=== PATIENT | male | born 1975 | race Caucasian/White ===

== ENCOUNTER 2019-05-30 16:04 | Emergency (ER) | payer BC, OTHER ==
--- NOTE | 2019-05-30 17:24 | UC ---
Hand/Wrist HPI - HPI Summary HPI Summary: ABOUT 1:15AM TODAY PT TRIPPED AND FELL LANDING ON LEFT HAND. HAS PAIN AND SWELLING AT BASE OF LEFT THUMB. - History Of Current Complaint Chief Complaint: UCUpperExtremity Stated Complaint: LEFT THUMB INJURY Time Seen by Provider: 05/30/19 17:00 Hx Obtained From: Patient Onset/Duration: Sudden Onset, Lasting Hours, Still Present Severity Initially: Moderate Severity Currently: Moderate Pain Intensity: 9 Pain Scale Used: 0-10 Numeric Character Of Pain: Sharp Aggravating Factor(s): Movement Alleviating Factor(s): Rest, Ice Associated Signs And Symptoms: Positive: Swelling, Bruising Related History: Dominant Hand Right - Allergies/Home Medications Allergies/Adverse Reactions: Allergies Allergy/AdvReac Type Severity Reaction Status Date / Time No Known Allergies Allergy Verified 05/30/19 16:22 Home Medications: Home Medications NK [No Home Medications Reported] 05/30/19 [History Confirmed 05/30/19] PMH/Surg Hx/FS Hx/Imm Hx Cardiovascular History: Hypertension - Surgical History Surgical History: None - Family History Known Family History: Positive: Unknown - PT STATES "WE DON'T TALK ABOUT IT" - Social History Alcohol Use: Weekly Substance Use Type: None Smoking Status (MU): Never Smoked Tobacco Review of Systems All Other Systems Reviewed And Are Negative: Yes Constitutional: Positive: Negative Skin: Positive: Bruising Respiratory: Positive: Negative Cardiovascular: Positive: Negative Gastrointestinal: Positive: Negative Musculoskeletal: Positive: Arthralgia, Decreased ROM, Edema Neurological: Positive: Negative Physical Exam Triage Information Reviewed: Yes Appearance: Well-Appearing, No Pain Distress, Well-Nourished Vital Signs: Initial Vital Signs Temp 97.8 F 05/30/19 16:17 Pulse 90 05/30/19 16:17 Resp 20 05/30/19 16:17 BP 214/138 05/30/19 16:17 Pulse Ox 97 05/30/19 16:17 Laboratory Tests 05/30/19 17:52 POC Urine Color Yellow POC Urine Clarity Clear POC Urine pH 6.0 POC Ur Specif [place] 1.015 POC Urine Protein 1+ A POC Ur Glucose (UA) 2+ A POC Urine Ketones Negative POC Urine Blood Trace-intact A POC Urine Nitrite Negative POC Urine Bilirubin Negative POC Urine Urobilinogen 0.2 POC U Leukocyte Esteras Negative Vital Signs Reviewed: Yes Eyes: Positive: Conjunctiva Clear ENT: Positive: Hearing grossly normal Neck: Positive: Supple Respiratory: Positive: No respiratory distress, No accessory muscle use Cardiovascular: Positive: Pulses Normal Abdomen Description: Positive: Soft Musculoskeletal: Positive: ROM Limited @ - LEFT THUMB, Edema @ - BASE OF LEFT THUMB, Other: - TTP BASE OF LEFT THUMB AND IN 1ST INTERDIGITAL [employer] Neurological: Positive: Alert Psychological: Positive: Age Appropriate Behavior Skin: Positive: Other - BRUISING BASE OF LEFT THUMB. Negative: Rashes Diagnostics - Radiology LEFT THUMB XRAYS Radiology Interpretation Completed By: Radiologist Summary of Radiographic Findings: FRACTURE OF THE BASE OF THE FIRST METACARPAL Hand/Wrist Course/Dx - Course Course Of Treatment: FRACTURE OF THE BASE OF THE FIRST METACARPAL OF THE LEFT HAND ON X-RAY TODAY. PATIENT PLACED IN A THUMB SPICA SPLINT AND ADVISED TO CALL ORTHOPEDICS FIRST THING IN THE MORNING FOR FOLLOW-UP APPOINTMENT THIS WEEK. TYLENOL NEEDED FOR DISCOMFORT. PATIENT DECLINES PRESCRIPTION PAIN MEDICATIONS TODAY. GIVEN HIS SIGNIFICANTLY ELEVATED BLOOD PRESSURE I ADVISED AGAINST TAKING NSAIDS SUCH IBUPROFEN OR NAPROXEN FOR NOW. ON TRIAGE BLOOD PRESSURE FOUND TO BE 214/ 138. MANUAL REPEAT BP SIMILAR. UPON FURTHER QUESTIONING IT IS DISCOVERED THE PATIENT HAS A KNOWN DIAGNOSIS OF HIGH BLOOD PRESSURE BUT HAS NOT HAD MEDICATIONS OR PRIMARY CARE FOLLOW-UP IN OVER 4 YEARS. HE DENIES CHEST PAIN, NAUSEA, SHORTNESS OF BREATH, HEADACHE, VISUAL DISTURBANCES. IS UNSURE OF HIS FAMILY HISTORY STATING THAT THEY "JUST DON'T TALK ABOUT IT "ALTHOUGH HE THINKS HIS FATHER HAD A HEART VALVE PROBLEM. URINALYSIS OBTAINED AND FOUND TO HAVE 2+ GLUCOSE AND 1+ PROTEIN. CONCERN FOR UNDERLYING DIABETES AND POSSIBLE KIDNEY INJURY FROM LONG-STANDING UNCONTROLLED HYPERTENSION. RECOMMEND TRANSFER TO THE EMERGENCY ROOM FOR FURTHER EVALUATION. PATIENT DECLINES TRANSFER BY AMBULANCE. ADVISED THAT BY NOT TRAVELING IN A MONITORED SETTING HE COULD BE RISKING WORSENING OF HIS CONDITION THAT COULD POSE A THREAT TO HIS LIFE, HEALTH AND MEDICAL SAFETY. HE VERBALIZES UNDERSTANDING AND CONTINUES TO DECLINE AMBULANCE TRANSFER. - Differential Dx/Diagnosis Provider Diagnosis: Fracture of first metacarpal of left hand, Hypertensive emergency - Physician Notifications Discussed Patient Care With: Kai Arias - [place] [facility] [place] PR[facility] CAR Time Discussed With Above Provider: 18:20 Instructed by Provider To: MD Will See In ED Discharge - Sign-Out/Discharge Documenting (check all that apply): Patient Departure All imaging exams completed and their final reports reviewed: Yes - Discharge Plan Condition: Stable Disposition: TRANS HIGHER LVL OF CARE FAC Patient Education Materials: Thumb Fracture (ED), Hypertensive Crisis (ED) Referrals: [facility] [Outside] - 2 Days Preston Rodas MD [Medical Doctor] - 2 Days Additional Instructions: X-RAY SHOWS A FRACTURE OF ONE OF THE BONES OF YOUR LEFT THUMB. KEEP THE THUMB SPICA SPLINT ON UNTIL SEEN BY ORTHOPEDICS. CALL ORTHO FIRST THING TOMORROW MORNING TO SCHEDULE A FOLLOW-UP APPOINTMENT FOR THIS WEEK. TYLENOL NEEDED FOR DISCOMFORT. GIVEN YOUR ELEVATED BLOOD PRESSURE I RECOMMEND YOU AVOID NSAIDS INCLUDING IBUPROFEN AND NAPROXEN FOR NOW. GO DIRECTLY TO THE [facility] FROM [place] FOR FURTHER EVALUATION OF YOUR BLOOD PRESSURE. YOU HAVE GLUCOSE AND PROTEIN IN YOUR URINE. I'M CONCERNED YOU MAY HAVE UNDERLYING DIABETES AND POSSIBLY KIDNEY INJURY FROM LONG-STANDING UNCONTROLLED HIGH BLOOD PRESSURE. YOU HAVE DECLINED TRANSFER TO THE ER BY AMBULANCE. BE ADVISED THAT BY NOT TRAVELING IN A MONITORED SETTING YOU COULD BE RISKING WORSENING OF YOUR CONDITION THAT COULD POSE A THREAT TO YOUR LIFE, HEALTH AND MEDICAL SAFETY. - Billing Disposition and Condition Condition: STABLE Disposition: Trans Higher Lvl of Care Fac
[2019-05-30 17:37] VITALS: BP 212/140
== END 2019-05-30 18:30 | disposition short-term general hospital (02) ==
LOC: UCEAST 16:04
DX: S62.232A Other displaced fracture of base of first metacarpal bone, left hand, initial encounter for closed fracture (principal); W01.0XXA Fall on same level from slipping, tripping and stumbling without subsequent striking against object, initial encounter; Y92.9 Unspecified place or not applicable; I16.0 Hypertensive urgency
CPT/HCPCS: 81003; 99203; G0463

== ENCOUNTER 2019-05-30 18:52 | Emergency (ER) | payer BC ==
[2019-05-30] MEDS ORDERED: Labetalol IV* 5 MG/ML 20 ML VIAL IV PUSH ONE ×3 (19:24→21:05)
--- NOTE | 2019-05-30 19:40 | ED ---
Hypertension - HPI Summary HPI Summary: The patient is a 43 y/o M presenting to [facility] from Urgent Care with a chief complaint of hypertension today. He reports he went to Urgent Care to rule out a fracture in his left hand, but he was sent here because of the increase in blood pressure that he presented with. He is not currently in any pain. He denies CP, SOB, blurred vision, and headache. He notes that he has hx of HTN and used to take Lisinopril, but he stopped taking the medication five years ago. No other past medical hx. Nonsmoker, weekly EtOH, no substance use. - History of Current Complaint Chief Complaint: EDHypertension Stated Complaint: "ELEVATED BLOOD PRESSURE PER PT COMING FROM [facility]" Time Seen by Provider: 05/30/19 19:15 Hx Obtained From: Patient Onset/Duration: Started Minutes Ago, Still Present Timing: Lasting Minutes Aggravating Factor(s): Nothing Alleviating Factor(s): Nothing Associated Signs & Symptoms: Other: - NEGATIVE: CP, SOB, blurred vision, headache - Allergies/Home Medications Allergies/Adverse Reactions: Allergies Allergy/AdvReac Type Severity Reaction Status Date / Time No Known Allergies Allergy Verified 05/30/19 18:58 PMH/Surg Hx/FS Hx/Imm Hx Endocrine/Hematology History: Denies: Hx Diabetes, Hx Thyroid Disease Cardiovascular History: Reports: Hx Hypertension Denies: Hx Hypercholesterolemia Respiratory History: Denies: Hx Asthma, Hx Chronic Obstructive Pulmonary Disease (COPD) GI History: Denies: Hx Ulcer - Surgical History Surgical History: None Surgery Procedure, Year, and Place: none Infectious Disease History: No Infectious Disease History: Denies: Hx Hepatitis, Hx Human Immunodeficiency Virus (HIV), Traveled Outside the [place] in Last 30 Days - Family History Known Family History: Positive: Unknown - patient is unsure of fhx - Social History Alcohol Use: Weekly Hx Substance Use: No Substance Use Type: Reports: None Hx Tobacco Use: No Smoking Status (MU): Never Smoked Tobacco Review of Systems Negative: Blurred Vision Positive: Other - increased BP. Negative: Chest Pain Negative: Shortness Of Breath Negative: Headache All Other Systems Reviewed And Are Negative: Yes Physical Exam - Summary Physical Exam Summary: VITAL SIGNS: Reviewed. Hypertensive. GENERAL: Patient is a well-developed but obese male who is lying comfortable in the stretcher. Patient is not in any acute respiratory distress. HEAD AND FACE: No signs of trauma. No ecchymosis, hematomas or skull depressions. No sinus tenderness. EYES: PERRLA, EOMI x 2, No injected conjunctiva, no nystagmus. EARS: Hearing grossly intact. Ear canals and tympanic membranes are within normal limits. MOUTH: Oropharynx within normal limits. NECK: Supple, trachea is midline, no adenopathy, no JVD, no carotid bruit, no c- spine tenderness, neck with full ROM. CHEST: Symmetric, no tenderness at palpation. LUNGS: Clear to auscultation bilaterally. No wheezing or crackles. CVS: Regular rate and rhythm, S1 and S2 present, no murmurs or gallops appreciated. ABDOMEN: Soft, non-tender. No signs of distention. No rebound, no guarding, and no masses palpated. Bowel sounds are normal. EXTREMITIES: FROM in all major joints, no edema, no cyanosis or clubbing. NEURO: Alert and oriented x 3. No acute neurological deficits. Speech is normal and follows commands. SKIN: Dry and warm. Triage Information Reviewed: Yes Vital Signs On Initial Exam: Initial Vitals Temp Pulse Resp BP Pulse Ox 98.3 F 85 18 205/142 97 05/30/19 18:53 05/30/19 18:53 05/30/19 18:53 05/30/19 18:53 05/30/19 18:53 Vital Signs Reviewed: Yes Diagnostics - Vital Signs Vital Signs Temp Pulse Resp BP Pulse Ox 05/30/19 18:53 98.3 F 85 18 205/142 97 - Laboratory Result Diagrams: 05/30/19 19:57 05/30/19 19:57 Lab Statement: Any lab studies that have been ordered have been reviewed, and results considered in the medical decision making process. - EKG 1924 Cardiac Rate: NL - 94 BPM EKG Rhythm: Sinus Rhythm Summary of EKG Findings: LVH. No ST elevations. Re-Evaluation - Re-Evaluation First Eval Re-Evaluation Time: 20:33 Change: Improved Comment: The patient is feeling better as blood pressure has improved with medication. Second Eval Re-Evaluation Time: 21:52 Change: Improved Comment: The patient continues to improve. We discussed discharge. Hypertension Course/Dx - Course Assessment/Plan: The patient is a 43 y/o M presenting to [facility] from Urgent Care with a chief complaint of hypertension today. He reports he went to Urgent Care to rule out a fracture in his left hand, but he was sent here because of the increase in blood pressure that he presented with. He is not currently in any pain. He denies CP, SOB, blurred vision, and headache. He notes that he has hx of HTN and used to take Lisinopril, but he stopped taking the medication five years ago. No other past medical hx. Nonsmoker, weekly EtOH, no substance use. Blood work without any significant abnormality except for sodium of 133, chloride of 98, and glucose of 220. The patient continues to be asymptomatic except for hypertension. The patient was given labetalol 20 mg IV 2, and the blood pressure has improved. The blood pressure manually is 161/96. Therefore, the patient was discharged home with follow-up with primary care physician. Patient will be given a prescription for Hyzaar/hydrochlorothiazide. I discussed all the findings and test results with the patient. Patient was instructed to return to the emergency room immediately if any of the symptoms return worsens. Plan of care was discussed with the patient and understands and agrees. All questions were answered at patient satisfaction. There were no further complaints or concerns. Lung exam before discharge: CTA B/L. Good air exchange. No wheezing or crackles heard. CVS: S1 and S2 present. No murmurs appreciated. Patient is alert and oriented x 3. Patient is hemodynamically stable. Patient will be discharged home with follow up PCP in the next 2-3 days. - Diagnoses Provider Diagnoses: Uncontrolled hypertension Discharge - Sign-Out/Discharge Documenting (check all that apply): Patient Departure - Patient will be discharged home. Patient Received Moderate/Deep Sedation with Procedure: No - Discharge Plan Condition: Stable Disposition: HOME Prescriptions: Losartan/Hydrochlorothiazide [Hyzaar 100/12.5 mg] 1 tab PO DAILY #30 tab Patient Education Materials: Chronic Hypertension (DC) Referrals: [facility] [Outside] - 3 Days Additional Instructions: Please take medication as prescribed. Follow up with your primary care provider in 2-3 days. RETURN TO THE EMERGENCY DEPARTMENT FOR ANY NEW OR WORSENING SYMPTOMS. - Billing Disposition and Condition Condition: STABLE Disposition: Home - Attestation Statements Document Initiated by Scribe: Yes Documenting Scribe: Mariposa Morales Provider For Whom Ryliee is Documenting (Include Credential): Dr. Marshall Trotter MD Scribe Attestation: I, Mariposa Morales, scribed for Dr. Marshall Trotter MD on 05/30/19 at 2155. Scribe Documentation Reviewed: Yes Provider Attestation: The documentation as recorded by the scribe, Mariposa Morales accurately reflects the service I personally performed and the decisions made by me, Dr. Marshall Trotter MD Status of Scribe Document: Ready
[2019-05-30 20:03] LABS: ABS Basophils 0.1 10^3/ul (0-0.2); ABS Eosinophils 0.1 10^3/ul (0-0.6); ABS Lymphocytes 2.4 10^3/ul (1.0-4.8); ABS Monocytes 0.7 10^3/ul (0-0.8); ABS Neutrophils 5.1 10^3/ul (1.5-7.7); Eosinophil % 0.9 %; Hematocrit 46 % (42-52); Hemoglobin 16.1 g/dL (14.0-18.0); Lymphocyte % 28.4 %; Mean Corpuscular HGB Conc 35 g/dL (31-36); Mean Corpuscular Hemoglobin 32 pg (27-31); Mean Corpuscular Volume 92 fL (80-94); Mean Platelet Volume 7.5 fL (7.4-10.4); Nucleated Red Blood Cells % 0.1; Platelet Count 235 10^3/uL (150-450); Red Blood Count 4.99 10^6 /uL (4.18-5.48); Red Cell Distribution Width 13 % (10-15); White Blood Count 8.5 10^3/uL (3.5-10.8)
[2019-05-30 20:20] LABS: BUN/Creatinine Ratio 11.6 (8-20); Calcium 8.7 mg/dL (8.6-10.3); EGFR Non-African American 97.5 (>60); Potassium 3.8 mmol/L (3.5-5.0)
[2019-05-30 22:02] VITALS: BP 145/97
== END 2019-05-30 22:00 | disposition home or self-care (01) ==
LOC: ED 18:52
DX: I10 Essential (primary) hypertension (principal); S62.232A Other displaced fracture of base of first metacarpal bone, left hand, initial encounter for closed fracture; W01.0XXA Fall on same level from slipping, tripping and stumbling without subsequent striking against object, initial encounter; Y92.9 Unspecified place or not applicable; I16.0 Hypertensive urgency
CPT/HCPCS: 36415; 80048; 85025; 93005; 96374; 96376; 99283

== ENCOUNTER 2023-10-10 15:42 | Observation (INO) ==
[2023-10-10 17:57] LABS: ABS Basophils 0.1 10^3/uL (0.0-0.1); ABS Eosinophils 0.1 10^3/uL (0.0-0.5); ABS Lymphocytes 1.9 10^3/uL (1.0-4.8); ABS Monocytes 0.5 10^3/uL (0.0-1.1); ABS Neutrophils 6.8 10^3/uL (1.5-7.6); ABS Nucleated RBC 0.01 10^3/ul; Eosinophil % 0.9 %; Hematocrit 47.6 % (38-53); Hemoglobin 16.2 g/dL (13.2-16.3); Lymphocyte % 20.4 %; Mean Corpuscular Hemoglobin 33.1 pg (27-33); Mean Corpuscular Hgb Conc 34.1 g/dL (31-36); Mean Corpuscular Volume 97.1 fL (80-97); Mean Platelet Volume 8.1 fL (7.5-11.2); Nucleated Red Blood Cells % 0.1 %/100WBC (0.0-0.8); Platelet Count 354 10^3/uL (150-450); Red Cell Distribution Width 13.7 % (12-17); White Blood Count 9.3 10^3/uL (3.6-10.2)
[2023-10-10 18:11] LABS: Albumin 3.5 g/dL (3.2-5.2); Albumin/Globulin Ratio 1.1 (1-3); C Reactive Protein 18.87 mg/L (<8.01); Creatinine, Serum 1.22 mg/dL (0.67-1.17); Globulin 3.2 g/dL (2-4); Total Bilirubin 1.4 mg/dL (0.2-1.0); Total Protein 6.7 g/dL (6.4-8.9)
[2023-10-10] MEDS ORDERED: Vancomycin 1,500 MG in NS 0.9% 250 ml 250 ML IVPB ONE (22:10)
[2023-10-11] MEDS ORDERED: Labetalol IV 5 MG/ML 20 ml VIAL IV PUSH PRN (02:52)
[2023-10-11] MEDS ORDERED: Vancomycin per Pharmacy 1 EA NOTE FOLLOW UP SCH (03:00)
[2023-10-11] MEDS ORDERED: Cefepime 2 GM in Dextrose 2 GM/50 ML BAG IV SCH (04:00)
[2023-10-11] MEDS: Enoxaparin 40 MG/0.4 ML SYR SUBCUT SCH (05:21)
[2023-10-11 08:06] LABS: Hemoglobin 14.3 g/dL (13.2-16.3); Mean Corpuscular Hemoglobin 33.1 pg (27-33); Mean Corpuscular Volume 97.3 fL (80-97); Mean Platelet Volume 8.5 fL (7.5-11.2); Platelet Count 332 10^3/uL (150-450); Red Blood Count 4.32 10^6/uL (4.06-5.63); Red Cell Distribution Width 13.2 % (12-17); White Blood Count 8.7 10^3/uL (3.6-10.2)
[2023-10-11] MEDS ORDERED: Dextrose 50% Syringe 50 ml 25 GM/50 ML SYRINGE IV PUSH PRN (08:38)
[2023-10-11 09:14] LABS: Calcium 8.5 mg/dL (8.6-10.3); Creatinine, Serum 1.18 mg/dL (0.67-1.17); Direct Bilirubin 0.4 mg/dL (0.03-0.18); Globulin 2.9 g/dL (2-4); Indirect Bilirubin 1.1 mg/dL (0.3-1.0); Potassium 3.7 mmol/L (3.5-5.0); Total Bilirubin 1.5 mg/dL (0.2-1.0); Total Protein 5.9 g/dL (6.4-8.9); eGFR CKD-EPI 77.1 (>60)
[2023-10-11] MEDS ORDERED: Furosemide 40 mg/4 ml IV VIAL IV ONE (09:14)
[2023-10-11 10:52] LABS: Urine Osmo 257 mOsm/kg (150-1150)
[2023-10-11] MEDS ORDERED: Vancomycin 1,250 MG in NS 0.9% 250 ml 250 ML IVPB SCH (11:00)
[2023-10-11 14:11] LABS: HDL Cholesterol 23.6 mg/dL
[2023-10-11 15:26] LABS: TSH Ultra Thyroid Stim Horm 3.68 mcIU/mL (0.34-5.60)
[2023-10-11] MEDS ORDERED: Potassium Chloride LIQUID 20 MEQ/15 ML LIQUID PO ONE (15:55)
[2023-10-11] MEDS: cefTRIAXone 2 gm/50 mL D5W 2 GM/50 ML BAG IV SCH (17:37)
[2023-10-11 21:52] LABS: Magnesium 1.4 mg/dL (1.9-2.7)
[2023-10-12] MEDS: Enoxaparin 40 MG/0.4 ML SYR SUBCUT SCH (05:57)
[2023-10-12 06:37] LABS: ABS Basophils 0.1 10^3/uL (0.0-0.1); ABS Eosinophils 0.2 10^3/uL (0.0-0.5); ABS Lymphocytes 2.2 10^3/uL (1.0-4.8); ABS Monocytes 0.6 10^3/uL (0.0-1.1); ABS Neutrophils 3.2 10^3/uL (1.5-7.6); ABS Nucleated RBC 0.01 10^3/ul; Eosinophil % 3.4 %; Hematocrit 43.1 % (38-53); Hemoglobin 14.8 g/dL (13.2-16.3); Lymphocyte % 35.2 %; Mean Corpuscular Hemoglobin 33.2 pg (27-33); Mean Corpuscular Hgb Conc 34.2 g/dL (31-36); Mean Platelet Volume 8.3 fL (7.5-11.2); Nucleated Red Blood Cells % 0.1 %/100WBC (0.0-0.8); Platelet Count 318 10^3/uL (150-450); Red Blood Count 4.44 10^6/uL (4.06-5.63); Red Cell Distribution Width 13.6 % (12-17); White Blood Count 6.3 10^3/uL (3.6-10.2)
[2023-10-12 06:52] LABS: Calcium 8.7 mg/dL (8.6-10.3); Creatinine, Serum 1.2 mg/dL (0.67-1.17); Magnesium 1.5 mg/dL (1.9-2.7); Phosphorus 4.9 mg/dL (2.5-5.0); Potassium 3.6 mmol/L (3.5-5.0); eGFR CKD-EPI 75.5 (>60)
[2023-10-12] MEDS ORDERED: Potassium Chlor 20 meq TAB.ER PO ONE (07:18)
[2023-10-12] MEDS ORDERED: Magnesium Sulf 4 GM/100 ML IV 4,000 MG/100 ML BAG IVPB ONE (08:00)
[2023-10-12] MEDS ORDERED: Vancomycin Trough Check NOTE FOLLOW UP ONE (10:30)
[2023-10-12] MEDS ORDERED: Furosemide 40 mg/4 ml IV VIAL IV ONE (11:21)
[2023-10-12] MEDS ORDERED: Octreotide Acetate 500 MCG in NS 0.9% 100 ml BAG 100 ML IV SCH (15:00)
[2023-10-12] MEDS: cefTRIAXone 2 gm/50 mL D5W 2 GM/50 ML BAG IV SCH (17:39)
[2023-10-12 18:15] LABS: Albumin/Globulin Ratio 1.1 (1-3); Direct Bilirubin 0.3 mg/dL (0.03-0.18); Globulin 2.8 g/dL (2-4); Indirect Bilirubin 0.6 mg/dL (0.3-1.0); Total Bilirubin 0.9 mg/dL (0.2-1.0); Total Protein 5.8 g/dL (6.4-8.9)
[2023-10-12 18:39] LABS: Urine Creatinine Concentration 49.8 mg/dL (20.00-370.00)
[2023-10-13] MEDS: Enoxaparin 40 MG/0.4 ML SYR SUBCUT SCH (06:02)
[2023-10-13 07:02] LABS: ABS Basophils 0.1 10^3/uL (0.0-0.1); ABS Eosinophils 0.3 10^3/uL (0.0-0.5); ABS Lymphocytes 1.9 10^3/uL (1.0-4.8); ABS Monocytes 0.6 10^3/uL (0.0-1.1); ABS Nucleated RBC 0.01 10^3/ul; Eosinophil % 4.3 %; Hematocrit 43.9 % (38-53); Hemoglobin 15.1 g/dL (13.2-16.3); Lymphocyte % 27.4 %; Mean Corpuscular Hemoglobin 33.3 pg (27-33); Mean Corpuscular Hgb Conc 34.4 g/dL (31-36); Mean Corpuscular Volume 96.8 fL (80-97); Mean Platelet Volume 8.3 fL (7.5-11.2); Nucleated Red Blood Cells % 0.1 %/100WBC (0.0-0.8); Platelet Count 296 10^3/uL (150-450); Red Blood Count 4.54 10^6/uL (4.06-5.63); Red Cell Distribution Width 13.4 % (12-17); White Blood Count 6.9 10^3/uL (3.6-10.2)
[2023-10-13 07:09] LABS: Albumin 3.2 g/dL (3.2-5.2); Albumin/Globulin Ratio 1.1 (1-3); Calcium 8.7 mg/dL (8.6-10.3); Creatinine, Serum 1.19 mg/dL (0.67-1.17); Phosphorus 5.7 mg/dL (2.5-5.0); Potassium 3.7 mmol/L (3.5-5.0); Total Bilirubin 0.7 mg/dL (0.2-1.0); Total Protein 6.2 g/dL (6.4-8.9); eGFR CKD-EPI 76.3 (>60)
[2023-10-13] MEDS ORDERED: Furosemide 40 mg/4 ml IV VIAL IV ONE (07:10)
[2023-10-13] MEDS ORDERED: Potassium Chlor 10 meq TAB PO ONE (07:10)
[2023-10-13] MEDS ORDERED: Aminophylline 25 MG/ML VIAL ONE (07:22)
[2023-10-13] MEDS ORDERED: Regadenoson 0.4 MG/5 ML SYRINGE ONE (07:22)
[2023-10-13 15:48] LABS: Ferritin 268.7 ng/mL (24-336)
[2023-10-13 16:06] VITALS: BP 143/99
== END 2023-10-13 17:35 | disposition home or self-care (01) ==
LOC: EDHOLD 15:42 → ED 15:42 → SUATTDRO 10-11 01:00 → MED 10-11 02:52 → MEDTELE 10-12 18:43
PROVIDERS: ADMIT Internal Medicine; ATTEND Internal Medicine